=== PATIENT | female | born 1940 | race Caucasian/White ===

== ENCOUNTER 2020-07-18 18:09 | Inpatient (IN) | payer MEDICARE ==
[2020-07-18] MEDS ORDERED: GUAIFENESIN SF SOLN 200 MG/10 ML UDCUP PO PRN (20:50)
[2020-07-18] MEDS ORDERED: hydrALAZINE 20 MG/ML VIAL SLOW IVP PRN (20:50)
[2020-07-18] MEDS ORDERED: Nitroglycerin 0.4 MG TAB (25 Tab Bottle) SL PRN (20:50)
[2020-07-18] MEDS ORDERED: Acetaminophen 325 MG TAB PO PRN (20:50)
[2020-07-18] MEDS ORDERED: Zolpidem Tartrate 5 MG TAB PO PRN (20:53)
[2020-07-18] MEDS ORDERED: HYDROcodone/Acetaminophen 7.5/325 mg Tablet PO PRN (20:53)
[2020-07-18] MEDS ORDERED: Furosemide 40 MG/4 ML VIAL SLOW IVP SCH (21:00)
[2020-07-18 21:31] LABS: Troponin I 0.011 ng/mL (< 0.028)
[2020-07-18 22:13] VITALS: BMI 42.2
[2020-07-18] MEDS: hydrALAZINE 25 MG TAB PO SCH (22:51)
[2020-07-18] MEDS: Simvastatin 10 MG TAB PO SCH (23:42)
[2020-07-19 00:04] LABS: Troponin I 0.015 ng/mL (< 0.028)
[2020-07-19 06:00] LABS: Albumin 3.7 g/dL (3.4-4.8); Anion Gap 15 mmol/L (10-20); BUN (Urea Nitrogen) 50 mg/dL (9.8-20.1); BUN/Creatinine Ratio 17.06; Calc. Creatinine Clearance 27 mL/min (70-130); Calcium 9.1 mg/dL (7.8-10.44); Carbon Dioxide 28 mmol/L (23-31); Chloride 103 mmol/L (98-107); Glucose 97 mg/dL (83-110); Hemoglobin 10.2 g/dL (12.0-16.0); Mean Corpuscular Hemoglobin 29.6 pg (27.0-31.0); Mean Corpuscular Volume 92.2 fL (78.0-98.0); Mean Platelet Volume 7.2 fL (7.4-10.4); Phosphorus 4.3 mg/dL (2.3-4.7); Platelet Count 195 thou/uL (130-400); Potassium 4.1 mmol/L (3.5-5.1); RBC Distribution Width 12.4 % (11.5-14.5); Red Blood Cell (RBC) Count 3.44 mill/uL (4.20-5.40); Sodium 142 mmol/L (136-145); White Blood Cell (WBC) Count 6.3 thou/uL (4.8-10.8)
[2020-07-19 06:01] LABS: Hypochromia SLIGHT = 6-15 cells (100X) (0-5/hpf); Lymphocytes 31 % (21-51); MDiff Complete? YES; Monocytes 4 % (0-10); Neutrophil 65 % (42-75); Platelet Morphology Comment Appears Adequate
[2020-07-19 06:02] LABS: Troponin I 0.015 ng/mL (< 0.028)
[2020-07-19] MEDS: Furosemide 40 MG/4 ML VIAL SLOW IVP SCH ×2 (06:34→13:53)
[2020-07-19 07:19] LABS: Bilirubin Negative (Negative); Blood, Urine Large (Negative); Clarity Clear (Clear); Glucose, Urine (Dipstick) Negative (Negative); Ketone, Urine Negative (Negative); Leukocyte Negative (Negative); Nitrite Negative (Negative); Protein, Urine (Dipstick) Negative (Neg-Trace); Urobilinogen 0.2 mg/dL (Less than 2)
[2020-07-19 07:22] LABS: RBC/HPF Greater than 50 HPF (0-3); Squamous Epithelial 0-3 HPF (0-3); WBC/HPF 0-3 HPF (0-3)
[2020-07-19 07:30] LABS: Creatinine, Urine 59.62 mg/dL (47-110); Protein, Urine Random Quant Less than 10 mg/dL (1-14); Sodium, Urine 88 mmol/L (Not Available); Urea Nitrogen, Random Urine 339 mg/dl
[2020-07-19 07:34] LABS: Bacteria/HPF Rare-Few HPF (None Seen)
[2020-07-19 07:36] LABS: Urine Culture Reflex No No
[2020-07-19] MEDS ORDERED: Metoprolol Tartrate 50 MG TAB PO SCH (09:00)
[2020-07-19] MEDS: Aspirin 81 mg Enteric Coated Tablet PO SCH (10:02)
[2020-07-19] MEDS: hydrALAZINE 25 MG TAB PO SCH ×2 (10:02→21:57)
[2020-07-19] MEDS ORDERED: Amlodipine 5 MG TAB PO SCH (12:30)
[2020-07-19] MEDS ORDERED: hydrALAZINE 25 MG TAB PO SCH (16:45)
[2020-07-19] MEDS ORDERED: Enoxaparin Sodium 120 MG/0.8 ML SYRINGE SC SCH (18:00)
[2020-07-19] MEDS: Simvastatin 10 MG TAB PO SCH (21:57)
[2020-07-19] MEDS: Metoprolol Tartrate 25 MG TAB PO SCH (21:57)
[2020-07-20 05:31] LABS: Platelet Count 158 thou/uL (130-400)
[2020-07-20 05:32] LABS: Hemoglobin 9.8 g/dL (12.0-16.0)
[2020-07-20] MEDS: Furosemide 40 MG/4 ML VIAL SLOW IVP SCH ×2 (06:39→14:07)
[2020-07-20] MEDS: Metoprolol Tartrate 25 MG TAB PO SCH ×2 (10:49→20:42)
[2020-07-20] MEDS: Amlodipine 5 MG TAB PO SCH (10:49)
[2020-07-20] MEDS: hydrALAZINE 25 MG TAB PO SCH ×3 (10:49→20:42)
[2020-07-20] MEDS: Aspirin 81 mg Enteric Coated Tablet PO SCH (10:49)
[2020-07-20] MEDS: Simvastatin 10 MG TAB PO SCH (20:42)
[2020-07-21 05:24] LABS: Anion Gap 14 mmol/L (10-20); BUN (Urea Nitrogen) 56 mg/dL (9.8-20.1); Calc. Creatinine Clearance 23 mL/min (70-130); Calcium 8.9 mg/dL (7.8-10.44); Carbon Dioxide 27 mmol/L (23-31); Chloride 101 mmol/L (98-107); Glucose 101 mg/dL (83-110); Potassium 3.3 mmol/L (3.5-5.1); Sodium 139 mmol/L (136-145)
[2020-07-21] MEDS ORDERED: Potassium Chloride 40 MEQ in Premix Bag 1 BAG IVPB SCH (05:45)
[2020-07-21] MEDS ORDERED: Potassium Chloride 20 MEQ TAB PO SCH (06:00)
[2020-07-21] MEDS: Furosemide 40 MG/4 ML VIAL SLOW IVP SCH (06:12)
[2020-07-21] MEDS ORDERED: Regadenoson 0.4 MG/5 ML SYRINGE ONE (09:22)
[2020-07-21] MEDS: Amlodipine 5 MG TAB PO SCH (11:50)
[2020-07-21] MEDS: hydrALAZINE 25 MG TAB PO SCH ×2 (11:50→13:32)
[2020-07-21] MEDS: Aspirin 81 mg Enteric Coated Tablet PO SCH (11:50)
[2020-07-21] MEDS: Metoprolol Tartrate 25 MG TAB PO SCH ×2 (11:50→20:18)
[2020-07-21] MEDS: Albumin 25% 25 GM/100 ML BOT IVPB SCH ×2 (14:16→18:17)
[2020-07-21] MEDS: Simvastatin 10 MG TAB PO SCH (20:27)
[2020-07-22] MEDS: Albumin 25% 25 GM/100 ML BOT IVPB SCH ×2 (00:17→05:23)
[2020-07-22] MEDS: hydrALAZINE 25 MG TAB PO SCH (00:17)
[2020-07-22 05:02] LABS: Anion Gap 16 mmol/L (10-20); BUN (Urea Nitrogen) 54 mg/dL (9.8-20.1); Calc. Creatinine Clearance 26 mL/min (70-130); Calcium 9.4 mg/dL (7.8-10.44); Carbon Dioxide 27 mmol/L (23-31); Chloride 102 mmol/L (98-107); Glucose 94 mg/dL (83-110); Potassium 3.3 mmol/L (3.5-5.1); Sodium 142 mmol/L (136-145)
[2020-07-22] MEDS ORDERED: Potassium Chloride 20 MEQ TAB PO SCH (07:30)
[2020-07-22] MEDS: Torsemide 20 MG TAB PO SCH (08:27)
[2020-07-22] MEDS: Aspirin 81 mg Enteric Coated Tablet PO SCH (08:27)
[2020-07-22] MEDS: Metoprolol Tartrate 25 MG TAB PO SCH ×2 (08:27→20:25)
[2020-07-22] MEDS: Spironolactone 25 MG TAB PO SCH (08:27)
[2020-07-22] MEDS ORDERED: Amlodipine 5 MG TAB PO SCH (09:00)
[2020-07-22] MEDS ORDERED: Furosemide 40 MG/4 ML VIAL SLOW IVP SCH (09:00)
[2020-07-22 10:50] LABS: Iron 52 ug/dL (50-170); Iron Binding Capacity, Total 241 mcg/dL (265-497)
[2020-07-22] MEDS: Simvastatin 10 MG TAB PO SCH (20:25)
[2020-07-23 05:40] LABS: Anion Gap 16 mmol/L (10-20); BUN (Urea Nitrogen) 52 mg/dL (9.8-20.1); Calc. Creatinine Clearance 26 mL/min (70-130); Calcium 9.3 mg/dL (7.8-10.44); Carbon Dioxide 27 mmol/L (23-31); Chloride 103 mmol/L (98-107); Glucose 92 mg/dL (83-110); Potassium 4.1 mmol/L (3.5-5.1); Sodium 142 mmol/L (136-145)
[2020-07-23] MEDS ORDERED: Amlodipine 5 MG TAB PO SCH (07:37)
[2020-07-23] MEDS: Aspirin 81 mg Enteric Coated Tablet PO SCH (07:54)
[2020-07-23] MEDS: Torsemide 20 MG TAB PO SCH (07:57)
[2020-07-23] MEDS: Spironolactone 25 MG TAB PO SCH (07:57)
[2020-07-23] MEDS: Metoprolol Tartrate 25 MG TAB PO SCH ×2 (07:57→20:45)
[2020-07-23] MEDS ORDERED: Amlodipine 10 MG TAB PO SCH (09:00)
[2020-07-23] MEDS ORDERED: Iron, Sodium Ferric Gluconate 250 MG in Sodium Chloride 0.9% 250 ML 250 ML IVPB SCH (12:30)
[2020-07-23] MEDS ORDERED: EPOETIN ALFA-EPBX (ESRD) 10,000 UNIT/ML VIAL SC SCH (13:00)
[2020-07-23] MEDS: Simvastatin 10 MG TAB PO SCH (20:45)
[2020-07-24 05:12] LABS: Mean Corpuscular HGB CONC 33.7 g/dL (32.0-36.0); Mean Corpuscular Hemoglobin 31.3 pg (27.0-31.0); Mean Corpuscular Volume 92.8 fL (78.0-98.0); Mean Platelet Volume 7.4 fL (7.4-10.4); Platelet Count 163 thou/uL (130-400); RBC Distribution Width 12.2 % (11.5-14.5); White Blood Cell (WBC) Count 6.6 thou/uL (4.8-10.8)
[2020-07-24 05:25] LABS: Albumin 4.1 g/dL (3.4-4.8); Anion Gap 13 mmol/L (10-20); BUN (Urea Nitrogen) 57 mg/dL (9.8-20.1); BUN/Creatinine Ratio 17.59; Calc. Creatinine Clearance 24 mL/min (70-130); Calcium 9.2 mg/dL (7.8-10.44); Carbon Dioxide 27 mmol/L (23-31); Chloride 102 mmol/L (98-107); Glucose 99 mg/dL (83-110); Phosphorus 4.3 mg/dL (2.3-4.7); Potassium 3.7 mmol/L (3.5-5.1); Sodium 138 mmol/L (136-145)
[2020-07-24] MEDS: Metoprolol Tartrate 25 MG TAB PO SCH (08:28)
[2020-07-24] MEDS: Spironolactone 25 MG TAB PO SCH (08:28)
[2020-07-24] MEDS: Aspirin 81 mg Enteric Coated Tablet PO SCH (08:28)
[2020-07-24] MEDS ORDERED: NIFEdipine XL 60 MG TAB PO SCH (09:00)
[2020-07-24 15:31] VITALS: BP 146/67; TEMP 97.8
== END 2020-07-24 15:35 | disposition home or self-care (01) | DRG 291 ==
LOC: ERS 18:09 → 2SE 20:29 → 2NO 07-20 18:31
PROVIDERS: ADMIT Internal Medicine; ATTEND Family Medicine
DX: I13.0 Hypertensive heart and chronic kidney disease with heart failure and stage 1 through stage 4 chronic kidney disease, or unspecified chronic kidney disease (principal); I50.33 Acute on chronic diastolic (congestive) heart failure; N17.9 Acute kidney failure, unspecified; N18.4 Chronic kidney disease, stage 4 (severe); Z68.41 Body mass index [BMI] 40.0-44.9, adult; Z20.822 Contact with and (suspected) exposure to COVID-19; D63.1 Anemia in chronic kidney disease; I16.0 Hypertensive urgency; M10.9 Gout, unspecified; E66.9 Obesity, unspecified; R31.9 Hematuria, unspecified; Z88.0 Allergy status to penicillin; Z88.1 Allergy status to other antibiotic agents; Z79.82 Long term (current) use of aspirin; Z79.899 Other long term (current) drug therapy; Z79.52 Long term (current) use of systemic steroids; Z90.49 Acquired absence of other specified parts of digestive tract; Z90.710 Acquired absence of both cervix and uterus; Z98.890 Other specified postprocedural states
CPT/HCPCS: 36415; 78451; 78452; 80048; 80069; 81001; 82565; 82570; 83540; 83550; 84156; 84300; 84443; 84484; 84540; 84560; 85007; 85014; 85018; 85027; 93017; 94760; A9500; A9540; J1940; J2785; J2916; J7050; P9047; Q5105

== ENCOUNTER 2020-11-25 13:39 | Inpatient (IN) | payer MEDICARE ==
[2020-11-25 15:23] VITALS: BMI 38.5
[2020-11-25] MEDS ORDERED: Ondansetron PF 4 MG/2 ML Vial IVP PRN (16:37)
[2020-11-25] MEDS ORDERED: Ondansetron ODT 4 MG TAB PO PRN (16:37)
[2020-11-25] MEDS ORDERED: Senokot S 8.6-50 MG TAB PO PRN (16:37)
[2020-11-25] MEDS ORDERED: Calcium Carbonate 500 MG ChewTAB PO PRN (16:37)
[2020-11-25] MEDS ORDERED: Bisacodyl 5 MG TAB PO PRN (16:37)
[2020-11-25] MEDS: Sodium Chloride 0.9% 1,000 ML IV SCH (17:45)
[2020-11-25 21:32] LABS: SARS-CoV-2 PCR by NAA Not Detected (NotDetected)
[2020-11-26 04:46] LABS: #Eosinphils 0.1 thou/uL (0.0-0.7); #Lymphocytes 1.4 thou/uL (1.20-3.40); #Monocytes 0.6 thou/uL (0.11-0.59); #Neutrophils 5.1 thou/uL (1.40-6.50); %Basophils 0.1 % (0.0-1.0); %Eosinophils 1.9 % (0.0-10.0); %Lymphocytes 19.5 % (21.0-51.0); %Monocytes 8.3 % (0.0-10.0); %Neutrophils 70.2 % (42.0-75.0); Hemoglobin 9.9 g/dL (12.0-16.0); Mean Corpuscular HGB CONC 34.6 g/dL (32.0-36.0); Mean Corpuscular Hemoglobin 32.2 pg (27.0-31.0); Mean Corpuscular Volume 93.1 fL (78.0-98.0); Platelet Count 157 thou/uL (130-400); RBC Distribution Width 12.1 % (11.5-14.5); Red Blood Cell (RBC) Count 3.06 mill/uL (4.20-5.40); White Blood Cell (WBC) Count 7.2 thou/uL (4.8-10.8)
[2020-11-26 05:03] LABS: Anion Gap 14 mmol/L (10-20); BUN (Urea Nitrogen) 62 mg/dL (9.8-20.1); Calc. Creatinine Clearance 20 mL/min (70-130); Calcium 8.6 mg/dL (7.8-10.44); Carbon Dioxide 25 mmol/L (23-31); Chloride 105 mmol/L (98-107); Glucose 93 mg/dL (83-110); Sodium 140 mmol/L (136-145)
[2020-11-26] MEDS: Sodium Chloride 0.9% 1,000 ML IV SCH (07:30)
[2020-11-26] MEDS: Acetaminophen 325 MG TAB PO PRN ×2 (09:32→18:05)
[2020-11-26] MEDS: Cholecalciferol 1,000 UNITS (25 MCG) TAB PO SCH (09:32)
[2020-11-26] MEDS ORDERED: Pravastatin Sodium 20 MG TAB PO SCH (21:00)
[2020-11-26] MEDS: Montelukast Sodium 10 mg Tablet PO SCH (21:29)
[2020-11-26] MEDS: Polyethylene Glycol 3350 17 GM Packet PO SCH (21:29)
[2020-11-26] MEDS: Simvastatin 10 MG TAB PO SCH (21:30)
[2020-11-27 05:16] LABS: #Eosinphils 0.2 thou/uL (0.0-0.7); #Monocytes 0.5 thou/uL (0.11-0.59); #Neutrophils 4.7 thou/uL (1.40-6.50); %Basophils 0.2 % (0.0-1.0); %Eosinophils 3.2 % (0.0-10.0); %Lymphocytes 26.9 % (21.0-51.0); %Monocytes 6.7 % (0.0-10.0); Hemoglobin 10.3 g/dL (12.0-16.0); Mean Corpuscular HGB CONC 33.6 g/dL (32.0-36.0); Mean Corpuscular Hemoglobin 31.5 pg (27.0-31.0); Mean Corpuscular Volume 93.7 fL (78.0-98.0); Mean Platelet Volume 7.1 fL (7.4-10.4); Platelet Count 183 thou/uL (130-400); RBC Distribution Width 12.1 % (11.5-14.5); Red Blood Cell (RBC) Count 3.28 mill/uL (4.20-5.40); White Blood Cell (WBC) Count 7.5 thou/uL (4.8-10.8)
[2020-11-27 05:34] LABS: Anion Gap 15 mmol/L (10-20); BUN (Urea Nitrogen) 52 mg/dL (9.8-20.1); Calc. Creatinine Clearance 23 mL/min (70-130); Calcium 8.8 mg/dL (7.8-10.44); Carbon Dioxide 23 mmol/L (23-31); Chloride 107 mmol/L (98-107); Glucose 84 mg/dL (83-110); Potassium 4.4 mmol/L (3.5-5.1); Sodium 141 mmol/L (136-145)
[2020-11-27] MEDS ORDERED: Transdermal Patch Removal TOP SCH ×2 (06:00→21:00)
[2020-11-27] MEDS: Polyethylene Glycol 3350 17 GM Packet PO SCH ×2 (07:51→21:50)
[2020-11-27] MEDS: NIFEdipine XL 60 MG TAB PO SCH (07:51)
[2020-11-27] MEDS: Cholecalciferol 1,000 UNITS (25 MCG) TAB PO SCH (07:51)
[2020-11-27] MEDS ORDERED: Non-Formulary Item 1 EACH (Cholecalciferol (Vitamin D3) [Vitamin D] 1000 UNIT Capsule) PO SCH (09:00)
[2020-11-27] MEDS ORDERED: hydrALAZINE 25 MG TAB PO SCH (09:30)
[2020-11-27] MEDS ORDERED: Lidocaine 5% Patch TD SCH ×2 (11:00→18:00)
[2020-11-27 11:34] LABS: ALT (SGPT) 14 U/L (8-55); AST (SGOT) 15 U/L (5-34); Albumin 3.5 g/dL (3.4-4.8); Alkaline Phosphatase 67 U/L (40-110); Bilirubin, Direct 0.1 mg/dL (0.1-0.3); Bilirubin, Total 0.3 mg/dL (0.2-1.2); Lipase 28 U/L (8-78); Protein, Total 6.4 g/dL (5.8-8.1)
[2020-11-27] MEDS ORDERED: Magnesium Citrate 300 ML BOT PO SCH (15:00)
[2020-11-27] MEDS: Simvastatin 10 MG TAB PO SCH (21:49)
[2020-11-27] MEDS: Torsemide 20 MG TAB PO SCH ×2 (21:49→21:55)
[2020-11-27] MEDS: Montelukast Sodium 10 mg Tablet PO SCH (21:49)
[2020-11-27] MEDS: hydrALAZINE 25 MG TAB PO SCH (21:50)
[2020-11-28 05:34] LABS: Anion Gap 17 mmol/L (10-20); BUN (Urea Nitrogen) 46 mg/dL (9.8-20.1); Calc. Creatinine Clearance 23 mL/min (70-130); Carbon Dioxide 22 mmol/L (23-31); Chloride 107 mmol/L (98-107); Glucose 119 mg/dL (83-110); Potassium 4.5 mmol/L (3.5-5.1); Sodium 141 mmol/L (136-145)
[2020-11-28 05:52] LABS: #Eosinphils 0.1 thou/uL (0.0-0.7); #Lymphocytes 0.8 thou/uL (1.20-3.40); #Monocytes 0.4 thou/uL (0.11-0.59); #Neutrophils 5.3 thou/uL (1.40-6.50); %Basophils 0.4 % (0.0-1.0); %Eosinophils 1.7 % (0.0-10.0); %Lymphocytes 11.6 % (21.0-51.0); %Monocytes 5.9 % (0.0-10.0); %Neutrophils 80.3 % (42.0-75.0); Hemoglobin 10.7 g/dL (12.0-16.0); Mean Corpuscular HGB CONC 32.7 g/dL (32.0-36.0); Mean Corpuscular Hemoglobin 30.3 pg (27.0-31.0); Mean Corpuscular Volume 92.5 fL (78.0-98.0); Mean Platelet Volume 7.3 fL (7.4-10.4); Platelet Count 184 thou/uL (130-400); Red Blood Cell (RBC) Count 3.52 mill/uL (4.20-5.40); White Blood Cell (WBC) Count 6.6 thou/uL (4.8-10.8)
[2020-11-28] MEDS ORDERED: Spironolactone 25 MG TAB PO SCH (08:00)
[2020-11-28] MEDS ORDERED: Metoprolol Tartrate 50 MG TAB PO SCH (09:00)
[2020-11-28] MEDS ORDERED: Lidocaine 5% Patch TD SCH (09:00)
[2020-11-28] MEDS: NIFEdipine XL 60 MG TAB PO SCH (09:34)
[2020-11-28] MEDS: Polyethylene Glycol 3350 17 GM Packet PO SCH (09:34)
[2020-11-28] MEDS: hydrALAZINE 25 MG TAB PO SCH (09:34)
[2020-11-28] MEDS: Cholecalciferol 1,000 UNITS (25 MCG) TAB PO SCH (09:34)
[2020-11-28 11:44] VITALS: BP 169/70; TEMP 97.6
== END 2020-11-28 12:50 | disposition home or self-care (01) | DRG 683 ==
LOC: 2NO 15:15 → OBSVTOIN 19:18
PROVIDERS: ADMIT Internal Medicine; ATTEND Internal Medicine
DX: N17.9 Acute kidney failure, unspecified (principal); I50.32 Chronic diastolic (congestive) heart failure; I13.0 Hypertensive heart and chronic kidney disease with heart failure and stage 1 through stage 4 chronic kidney disease, or unspecified chronic kidney disease; Z20.822 Contact with and (suspected) exposure to COVID-19; M10.9 Gout, unspecified; J45.909 Unspecified asthma, uncomplicated; N18.4 Chronic kidney disease, stage 4 (severe); D63.1 Anemia in chronic kidney disease; T50.2X5A Adverse effect of carbonic-anhydrase inhibitors, benzothiadiazides and other diuretics, initial encounter; E78.2 Mixed hyperlipidemia; K59.00 Constipation, unspecified; Z90.49 Acquired absence of other specified parts of digestive tract; Z88.1 Allergy status to other antibiotic agents; Z88.8 Allergy status to other drugs, medicaments and biological substances; Z79.82 Long term (current) use of aspirin; Z79.899 Other long term (current) drug therapy; Z90.710 Acquired absence of both cervix and uterus
CPT/HCPCS: 36415; 74022; 80048; 80076; 83690; 84484; 85025; 85652; 86140; J7050; U0003; U0005

== ENCOUNTER 2022-10-07 01:02 | Inpatient (IN) | payer MEDICARE ==
[2022-10-07 01:58] LABS: #Eosinphils 0.1 thou/uL (0.0-0.7); #Monocytes 0.5 thou/uL (0.11-0.59); #Neutrophils 4.7 thou/uL (1.40-6.50); %Basophils 0.3 % (0.0-1.0); %Eosinophils 1.5 % (0.0-10.0); %Monocytes 6.9 % (0.0-10.0); Hematocrit 35.6 % (36.0-47.0); Hemoglobin 11.1 g/dL (12.0-16.0); Mean Corpuscular HGB CONC 31.2 g/dL (32.0-36.0); Mean Corpuscular Hemoglobin 29.9 pg (27.0-31.0); Mean Platelet Volume 9.6 fL (7.4-10.4); Platelet Count 180 10x3/uL (130-400); RBC Distribution Width 13.7 % (11.5-14.5); Red Blood Cell (RBC) Count 3.71 mill/uL (4.20-5.40); White Blood Cell (WBC) Count 6.8 10x3/uL (4.8-10.8)
[2022-10-07 02:23] LABS: ALT (SGPT) 13 U/L (8-55); AST (SGOT) 14 U/L (5-34); Albumin 3.8 g/dL (3.4-4.8); Alkaline Phosphatase 77 U/L (40-110); Anion Gap 18 mmol/L (10-20); BUN (Urea Nitrogen) 61 mg/dL (9.8-20.1); Bilirubin, Total 0.3 mg/dL (0.2-1.2); Calc. Creatinine Clearance 0 mL/min (70-130); Calcium 9.1 mg/dL (7.8-10.44); Carbon Dioxide 20 mmol/L (23-31); Chloride 103 mmol/L (98-107); Estimated GFR 13; Globulin 3.3 g/dL (2.4-3.5); Glucose 133 mg/dL (83-110); Lipase 33 U/L (8-78); Magnesium 2.3 mg/dL (1.6-2.6); Potassium 3.1 mmol/L (3.5-5.1); Protein, Total 7.1 g/dL (5.8-8.1); Sodium 138 mmol/L (136-145)
[2022-10-07 02:24] LABS: Troponin I 0.019 ng/mL (< 0.028)
[2022-10-07] MEDS ORDERED: Ondansetron PF 4 MG/2 ML Vial ONE (02:26)
[2022-10-07] MEDS ORDERED: Potassium Chloride 20 MEQ/100 ML PREMIX BAG ONE ×3 (03:18→07:07)
[2022-10-07] MEDS ORDERED: Scopolamine 1.5 mg/72 hour Patch TD SCH (04:15)
[2022-10-07] MEDS ORDERED: Promethazine HCl 25 MG/ML VIAL ONE (05:44)
[2022-10-07] MEDS ORDERED: hydrALAZINE 20 MG/ML VIAL SLOW IVP PRN (06:09)
[2022-10-07] MEDS ORDERED: Acetaminophen 650 MG Suppository PR PRN (06:09)
[2022-10-07] MEDS ORDERED: Ondansetron ODT 4 MG TAB PO PRN (06:09)
[2022-10-07] MEDS ORDERED: Aspirin Chewable 81 MG TAB PO SCH (06:30)
[2022-10-07] MEDS ORDERED: Electrolyte Replacement Protocol 1 EACH FS SCH (06:45)
[2022-10-07 07:17] LABS: Hemoglobin A1c 5.5 % (4.0-6.0)
[2022-10-07 07:31] LABS: Anion Gap 18 mmol/L (10-20); BUN (Urea Nitrogen) 58 mg/dL (9.8-20.1); Calc. Creatinine Clearance 0 mL/min (70-130); Calcium 9.1 mg/dL (7.8-10.44); Carbon Dioxide 20 mmol/L (23-31); Chloride 105 mmol/L (98-107); Cholesterol 151 mg/dl (< 200 Desired); Estimated GFR 14; Glucose 140 mg/dL (83-110); HDL Cholesterol 50 mg/dL (>60 Neg Risk); LDL Cholesterol, Calculated 89 mg/dL; Magnesium 2.2 mg/dL (1.6-2.6); Potassium 4.1 mmol/L (3.5-5.1); Sodium 139 mmol/L (136-145); Triglycerides 62 mg/dL (Less than 150)
[2022-10-07] MEDS ORDERED: Aspirin Chewable 81 MG TAB ONE (09:36)
[2022-10-07 16:06] VITALS: BMI 36.8
[2022-10-07] MEDS: Simvastatin 10 MG TAB PO SCH (20:38)
[2022-10-07] MEDS ORDERED: Pravastatin Sodium 20 MG TAB PO SCH (21:00)
[2022-10-08 06:27] LABS: #Monocytes 0.5 thou/uL (0.11-0.59); #Neutrophils 5.1 thou/uL (1.40-6.50); %Basophils 0.3 % (0.0-1.0); %Eosinophils 0.3 % (0.0-10.0); %Lymphocytes 20.7 % (21.0-51.0); %Monocytes 7.2 % (0.0-10.0); %Neutrophils 71.1 % (42.0-75.0); Hematocrit 31.2 % (36.0-47.0); Hemoglobin 9.8 g/dL (12.0-16.0); Mean Corpuscular HGB CONC 31.4 g/dL (32.0-36.0); Mean Corpuscular Hemoglobin 29.8 pg (27.0-31.0); Mean Corpuscular Volume 94.8 fl (78.0-98.0); Mean Platelet Volume 9.8 fL (7.4-10.4); Platelet Count 161 10x3/uL (130-400); RBC Distribution Width 13.9 % (11.5-14.5); Red Blood Cell (RBC) Count 3.29 mill/uL (4.20-5.40); White Blood Cell (WBC) Count 7.2 10x3/uL (4.8-10.8)
[2022-10-08 06:50] LABS: Anion Gap 15 mmol/L (10-20); BUN (Urea Nitrogen) 50 mg/dL (9.8-20.1); Calc. Creatinine Clearance 23 mL/min (70-130); Carbon Dioxide 23 mmol/L (23-31); Cardiac Risk 3.1 (Less than 4.5); Chloride 109 mmol/L (98-107); Cholesterol 125 mg/dl (< 200 Desired); Estimated GFR 16; Glucose 90 mg/dL (83-110); HDL Cholesterol 40 mg/dL (>60 Neg Risk); LDL Cholesterol, Calculated 69 mg/dL; Potassium 3.6 mmol/L (3.5-5.1); Sodium 143 mmol/L (136-145); Triglycerides 82 mg/dL (Less than 150)
[2022-10-08] MEDS: Ondansetron PF 4 MG/2 ML Vial IVP PRN (08:12)
[2022-10-08] MEDS: Aspirin 81 mg Enteric Coated Tablet PO SCH (08:20)
[2022-10-08] MEDS ORDERED: Aspirin 81 mg Enteric Coated Tablet PO SCH (09:00)
[2022-10-08] MEDS ORDERED: Promethazine 25 MG TAB PO PRN (12:45)
[2022-10-08] MEDS: Acetaminophen 325 MG TAB PO PRN (16:44)
[2022-10-08] MEDS: Simvastatin 10 MG TAB PO SCH (20:45)
[2022-10-09] MEDS: Aspirin 81 mg Enteric Coated Tablet PO SCH (08:10)
[2022-10-09] MEDS: Acetaminophen 325 MG TAB PO PRN (13:29)
[2022-10-09] MEDS ORDERED: methylPREDNISolone Sod Succ 40 MG VIAL IVP SCH (16:30)
[2022-10-09] MEDS: Ondansetron PF 4 MG/2 ML Vial IVP PRN (19:05)
[2022-10-09] MEDS: Atorvastatin Calcium 40 MG TAB PO SCH (20:20)
[2022-10-10] MEDS: Aspirin 81 mg Enteric Coated Tablet PO SCH (08:44)
[2022-10-10] MEDS ORDERED: traMADol HCl 50 MG TAB PO PRN (15:18)
[2022-10-10] MEDS: Montelukast Sodium 10 mg Tablet PO SCH (20:02)
[2022-10-10] MEDS: Atorvastatin Calcium 40 MG TAB PO SCH (20:02)
[2022-10-11 05:50] LABS: Anion Gap 12 mmol/L (10-20); BUN (Urea Nitrogen) 47 mg/dL (9.8-20.1); Calc. Creatinine Clearance 25 mL/min (70-130); Carbon Dioxide 25 mmol/L (23-31); Chloride 104 mmol/L (98-107); Estimated GFR 17; Glucose 91 mg/dL (83-110); Potassium 3.8 mmol/L (3.5-5.1); Sodium 137 mmol/L (136-145)
[2022-10-11] MEDS: Cholecalciferol 1,000 UNITS (25 MCG) TAB PO SCH (09:48)
[2022-10-11] MEDS: Aspirin 81 mg Enteric Coated Tablet PO SCH (09:48)
[2022-10-11] MEDS: Acetaminophen 325 MG TAB PO PRN (09:49)
[2022-10-11] MEDS: Atorvastatin Calcium 40 MG TAB PO SCH (21:00)
[2022-10-11] MEDS: Montelukast Sodium 10 mg Tablet PO SCH (21:00)
[2022-10-11] MEDS: Midodrine HCl 5 MG TAB PO SCH (21:00)
[2022-10-12] MEDS: Aspirin 81 mg Enteric Coated Tablet PO SCH (08:30)
[2022-10-12] MEDS: Cholecalciferol 1,000 UNITS (25 MCG) TAB PO SCH (08:30)
[2022-10-12] MEDS: Midodrine HCl 5 MG TAB PO SCH ×2 (08:30→21:22)
[2022-10-12] MEDS ORDERED: Senokot S 8.6-50 MG TAB PO SCH (09:45)
[2022-10-12] MEDS: Ondansetron PF 4 MG/2 ML Vial IVP PRN (15:31)
[2022-10-12] MEDS: Atorvastatin Calcium 40 MG TAB PO SCH (21:22)
[2022-10-12] MEDS: Senokot S 8.6-50 MG TAB PO SCH (21:22)
[2022-10-12] MEDS: Montelukast Sodium 10 mg Tablet PO SCH (21:23)
[2022-10-13] MEDS: Cholecalciferol 1,000 UNITS (25 MCG) TAB PO SCH (08:57)
[2022-10-13] MEDS: Aspirin 81 mg Enteric Coated Tablet PO SCH (08:57)
[2022-10-13] MEDS: Senokot S 8.6-50 MG TAB PO SCH ×2 (08:58→21:36)
[2022-10-13] MEDS: Midodrine HCl 5 MG TAB PO SCH ×2 (08:58→21:36)
[2022-10-13] MEDS ORDERED: Bisacodyl 10 MG SUPP PR SCH (17:00)
[2022-10-13] MEDS: Atorvastatin Calcium 40 MG TAB PO SCH (21:37)
[2022-10-13] MEDS: Montelukast Sodium 10 mg Tablet PO SCH (21:37)
[2022-10-13] MEDS: Metoprolol Tartrate 25 MG TAB PO SCH (21:37)
[2022-10-14] MEDS: Cholecalciferol 1,000 UNITS (25 MCG) TAB PO SCH (08:48)
[2022-10-14] MEDS: Aspirin 81 mg Enteric Coated Tablet PO SCH (08:48)
[2022-10-14] MEDS: Midodrine HCl 5 MG TAB PO SCH ×2 (08:48→20:02)
[2022-10-14] MEDS: Senokot S 8.6-50 MG TAB PO SCH ×2 (08:48→20:02)
[2022-10-14] MEDS: Metoprolol Tartrate 25 MG TAB PO SCH ×2 (08:49→20:00)
[2022-10-14] MEDS: Montelukast Sodium 10 mg Tablet PO SCH (20:02)
[2022-10-14] MEDS: Atorvastatin Calcium 40 MG TAB PO SCH (20:02)
[2022-10-14 20:34] VITALS: BP 137/63; TEMP 98.7
== END 2022-10-14 20:51 | disposition swing bed (61) | DRG 65 ==
LOC: ERS 01:02 → ERHOLD 05:32 → 2SE 14:35 → ERHOLD 14:52 → 2SE 14:53
PROVIDERS: ADMIT Nurse Practitioner Family; ATTEND Family Medicine
PROC: 4A10X4Z Monitoring of Central Nervous Electrical Activity, External Approach (ICD-10-PCS; principal; 2022-10-09)
PROC: 4A10X4Z Monitoring of Central Nervous Electrical Activity, External Approach (ICD-10-PCS; 2022-10-13)
DX: I63.541 Cerebral infarction due to unspecified occlusion or stenosis of right cerebellar artery (principal); I13.0 Hypertensive heart and chronic kidney disease with heart failure and stage 1 through stage 4 chronic kidney disease, or unspecified chronic kidney disease; N17.9 Acute kidney failure, unspecified; M10.9 Gout, unspecified; I50.9 Heart failure, unspecified; N18.9 Chronic kidney disease, unspecified; E87.6 Hypokalemia; D63.1 Anemia in chronic kidney disease; E78.2 Mixed hyperlipidemia; R44.1 Visual hallucinations; I48.0 Paroxysmal atrial fibrillation; E03.8 Other specified hypothyroidism; I95.1 Orthostatic hypotension; Z90.710 Acquired absence of both cervix and uterus; Z90.49 Acquired absence of other specified parts of digestive tract; Z98.890 Other specified postprocedural states; Z88.1 Allergy status to other antibiotic agents; Z88.8 Allergy status to other drugs, medicaments and biological substances; Z79.82 Long term (current) use of aspirin; Z79.899 Other long term (current) drug therapy
CPT/HCPCS: 36415; 70450; 70551; 71045; 80048; 80053; 80061; 83036; 83690; 83735; 83880; 84439; 84443; 84484; 85025; 93005; 93306; 93880; 95711; 95712; 95819; 95957; 96374; 96375; J1650; J2405; J2550; J2920; J3480; Q0162; Q0169